=== PATIENT | female | born 1940 | race Caucasian/White ===

== ENCOUNTER → 2016-09-12 | Outpatient (CLI) | payer OTHER ==
[2015-06-18 09:00] VITALS: BP 124/64
--- NOTE | 2016-09-12 16:54 | MG ---
HISTORY: SCREENING Comparison: September 09, 2015 FINDINGS: Bilateral CC and MLO projections of the right and left breast were obtained. Scattered fibroglandul ar tissue is seen to be present. No significant architectural distortion, mass or clustered microca lcifications can be observed to suggest malignancy. No skin thickening or nipple retraction is appr eciated. No pathological lymphadenopathy can be identified. Benign-appearing calcifications scatte red throughout the right and left breasts are observed. IMPRESSION: NO RADIOGRAPHIC EVIDENCE OF MALIGNANCY. ACR CATEGORY 2 - benign findings. FOLLOW-UP EXAM 1 YEAR. Diagnostic CAD was utilized and reviewed. * 0 (ZERO) - ASSESSMENT INCOMPLETE; ADDITIONAL IMAGING IS NEEDED. * 1/ (ONE) - NEGATIVE. * 2/II (TWO) - BENIGN FINDINGS. * 3/III (THREE) - PROBABLY BENIGN FINDING; SHORT INTERVAL FOLLOW-UP SUGGESTED. * 4/IV (FOUR) - SUSPICIOUS ABNORMALITY; BIOPSY SHOULD BE CONSIDERED. * 5/V - HIGHLY SUSPICIOUS OF MALIGNANCY; BIOPSY SHOULD BE PERFORMED. A NEGATIVE X-RAY REPORT SHOULD NOT DELAY BIOPSY IF A DOMINANT OR CLINICALLY SUSPICIOUS MASS IS PRESENT; 4 TO 8 PERCENT OF CANCERS ARE NOT IDENTIFIED BY X-RAY. A NEG ATIVE REPORT MAY REINFORCE THE CLINICAL IMPRESSION. ADENOSIS AND DENSE BREASTS MAY OBSCURE AN UNDER LYING NEOPLASM. Reported By:
== END ==
LOC: RAD 09:17
PROVIDERS: ATTEND Internal Medicine
DX: Z12.31 Encounter for screening mammogram for malignant neoplasm of breast (principal)
CPT/HCPCS: 77067

== ENCOUNTER 2017-05-23 07:54 | Day surgery (SDC) | payer OTHER ==
[~2017-05-23 07:54] MED LIST: NS 1000 ML 1,000 ML ONE
[2017-05-23] MEDS ORDERED: TETRACAINE 0.5% OPHTH 1 DOSE AFFEYE ONE ×4 (08:19→11:56)
[2017-05-23] MEDS ORDERED: VIGAMOX 0.5% OPHTH 1 DOSE AFFEYE ONE ×5 (08:20→12:07)
[2017-05-23] MEDS ORDERED: PROLENSA OPHTH 1 DOSE AFFEYE ONE (08:31)
[2017-05-23] MEDS ORDERED: ALPHAGAN-P OPHTH 1 DOSE AFFEYE ONE (08:32)
[2017-05-23] MEDS ORDERED: CYCLOGYL 1% OPHTH 1 DOSE OP ONE ×3 (08:33→08:39)
[2017-05-23] MEDS ORDERED: AK-DILATE 2.5% OPHTH 1 DOSE OP ONE ×3 (08:34→08:40)
[2017-05-23] MEDS ORDERED: MYDRIACIL OPHTH 1 DOSE AFFEYE ONE ×3 (08:35→08:41)
[2017-05-23] MEDS ORDERED: BETADINE OPHTH SOLN 5% EACHEYE ONE (11:48)
[2017-05-23] MEDS ORDERED: ADRENALINE CHL INJ IJ ONE ×2 (11:53→11:56)
[2017-05-23] MEDS ORDERED: DUOVISC IO ONE ×2 (11:53→11:56)
[2017-05-23] MEDS ORDERED: XYLOCAINE-MPF 1% IJ ONE ×2 (11:53→11:56)
[2017-05-23] MEDS ORDERED: BSS OPHTH (PLAIN) 500 ML with VANCOMYCIN HCL 500 MG VIAL 25 MG, ADRENALINE CHL INJ 1 MG IR ONE ×6 (11:54)
[2017-05-23] MEDS ORDERED: DIPRIVAN VIAL ONE (13:46)
[2017-05-23] MEDS ORDERED: VERSED ONE (13:46)
[2017-05-23 15:15] VITALS: BP 127/62
== END 2017-05-23 12:30 | disposition home or self-care (01) ==
LOC: SURG1 07:54
PROVIDERS: ATTEND Ophthalmology
PROC: 08RK3JZ Replacement of Left Lens with Synthetic Substitute, Percutaneous Approach (ICD-10-PCS; principal; 2017-05-23 12:30)
PROC: 08DK3ZZ Extraction of Left Lens, Percutaneous Approach (ICD-10-PCS; principal; 2017-05-23 12:30)
DX: H25.12 Age-related nuclear cataract, left eye (principal); H25.012 Cortical age-related cataract, left eye
CPT/HCPCS: 99100; A4217; J0170; J2250; J3370; J3490

== ENCOUNTER 2017-06-06 07:44 | Day surgery (SDC) | payer OTHER ==
[2017-06-06] MEDS ORDERED: TETRACAINE 0.5% OPHTH 1 DOSE AFFEYE ONE ×2 (08:03→11:11)
[2017-06-06] MEDS ORDERED: VIGAMOX 0.5% OPHTH 1 DOSE AFFEYE ONE ×5 (08:05→11:38)
[2017-06-06] MEDS ORDERED: PROLENSA OPHTH 1 DOSE AFFEYE ONE (08:16)
[2017-06-06] MEDS ORDERED: ALPHAGAN-P OPHTH 1 DOSE AFFEYE ONE (08:18)
[2017-06-06] MEDS ORDERED: MYDRIACIL OPHTH 1 DOSE AFFEYE ONE ×3 (08:20→08:25)
[2017-06-06] MEDS ORDERED: AK-DILATE 2.5% OPHTH 1 DOSE OP ONE ×3 (08:20→08:25)
[2017-06-06] MEDS ORDERED: CYCLOGYL 1% OPHTH 1 DOSE OP ONE ×3 (08:20→08:25)
[2017-06-06] MEDS ORDERED: NS 500 ML IV 500 ML IV ONE (08:27)
[2017-06-06] MEDS ORDERED: DIPRIVAN VIAL ONE (09:32)
[2017-06-06] MEDS ORDERED: BETADINE OPHTH SOLN 5% EACHEYE ONE (11:11)
[2017-06-06] MEDS ORDERED: ADRENALINE CHL INJ IJ ONE ×2 (11:19→11:27)
[2017-06-06] MEDS ORDERED: DUOVISC IO ONE ×2 (11:19→11:27)
[2017-06-06] MEDS ORDERED: XYLOCAINE-MPF 1% IJ ONE ×2 (11:19→11:27)
[2017-06-06] MEDS ORDERED: BSS OPHTH (PLAIN) 500 ML with VANCOMYCIN HCL 500 MG VIAL 25 MG, ADRENALINE CHL INJ 1 MG IR ONE ×6 (11:20)
[2017-06-06 14:42] VITALS: BP 130/62
== END 2017-06-06 12:05 | disposition home or self-care (01) ==
LOC: SURG1 07:44
PROVIDERS: ATTEND Ophthalmology
PROC: 08DJ3ZZ Extraction of Right Lens, Percutaneous Approach (ICD-10-PCS; principal; 2017-06-06 12:00)
PROC: 08RJ3JZ Replacement of Right Lens with Synthetic Substitute, Percutaneous Approach (ICD-10-PCS; principal; 2017-06-06 12:00)
DX: H25.11 Age-related nuclear cataract, right eye (principal); H25.011 Cortical age-related cataract, right eye
CPT/HCPCS: 99100; A4217; J0170; J3370; J3490